=== PATIENT | female | born 1960 | race Caucasian/White ===

== ENCOUNTER 2020-10-29 12:41 | Emergency (ER) | payer MEDICAID ==
[~2020-10-29] VITALS: Ht 180.3 cm; Wt 136.0 kg
[2020-10-29] MEDS ORDERED: SILV50CR31 TP (14:09)
[2020-10-29] MEDS ORDERED: ACET-2708 MT (14:09)
[2020-10-29] MEDS ORDERED: SULF1TAB48 MT (14:09)
[2020-10-29] MEDS ORDERED: DOXY100T2 MT (14:09)
[2020-10-29] MEDS ORDERED: DOXYCYCLINE HYCLATE 100MG CAPSULE PO ONE (14:15)
[2020-10-29] MEDS ORDERED: SULFAMETHOXAZOLE/TRIMETHOPRIM 800/160MG TABLET PO ONE (14:15)
[2020-10-29] MEDS ORDERED: MORPHINE SULFATE 4 MG/ML CPJ (NOT FOR IM USE) IV ONE (14:15)
[2020-10-29] MEDS ORDERED: BACITRACIN 15GM TUBE TOP ONE (15:15)
[2020-10-29 15:59] VITALS: BP 145/56
== END 2020-10-29 16:28 | disposition home or self-care (01) ==
LOC: ER 12:41
DX: S81.832A Puncture wound without foreign body, left lower leg, initial encounter (principal); R03.0 Elevated blood-pressure reading, without diagnosis of hypertension; Z88.0 Allergy status to penicillin; E11.9 Type 2 diabetes mellitus without complications; X58.XXXA Exposure to other specified factors, initial encounter; Y93.9 Activity, unspecified; Y92.9 Unspecified place or not applicable; Z00.00 Encounter for general adult medical examination without abnormal findings; Z86.711 Personal history of pulmonary embolism; Z86.718 Personal history of other venous thrombosis and embolism
CPT/HCPCS: 96374; 99283; A4217; J2270

== ENCOUNTER 2022-02-04 09:11 | Emergency (ER) | payer MEDICAID ==
[~2022-02-04] VITALS: Ht 180.3 cm; Wt 132.0 kg
[~2022-02-04 09:11] MED LIST: ACET-2708 MT; DOXY100T2 MT; SILV50CR31 TP; SULF1TAB48 MT
[2022-02-04 09:23] VITALS: BP 151/52
[2022-02-04] MEDS ORDERED: NAPR500T7 MT (12:14)
== END 2022-02-04 12:54 | disposition home or self-care (01) ==
LOC: ER 09:11
DX: M25.511 Pain in right shoulder (principal); W01.0XXA Fall on same level from slipping, tripping and stumbling without subsequent striking against object, initial encounter; Y93.89 Activity, other specified; Y92.9 Unspecified place or not applicable; E11.9 Type 2 diabetes mellitus without complications; Z88.0 Allergy status to penicillin; Z98.62 Peripheral vascular angioplasty status; Z86.711 Personal history of pulmonary embolism; Z86.718 Personal history of other venous thrombosis and embolism; Z98.890 Other specified postprocedural states
CPT/HCPCS: 73030; 99283